=== PATIENT | male | born 1990 | race Caucasian/White ===

== ENCOUNTER 2018-03-27 04:54 | Emergency (ER) | payer MEDICAID, SELFPAY ==
[2018-03-27 04:55] VITALS: BP 141/79; PULSE 103; RESP 16; TEMP 37.6; O2SAT 95; BMI 27.8
[2018-03-27 05:00] VITALS: BP 127/82
[2018-03-27] MEDS: Ibuprofen 600 MG Tablet PO (05:35)
--- NOTE | 2018-03-27 06:40 | ED.VIS.GEN ---
History of Present Illness Chief Complaint: Fever Informant: Patient Onset: Yesterday Context: Sudden Onset Quality: malaise Location: all over Current Severity: Moderate Maximum Severity: Moderate Worsened by: nothing Relieved by: nothing Associated Symptoms: headache, nausea, subjective fever/chills Narrative: Patient states that yesterday, all of a sudden, he felt like he got hit by a truck. No sore throat, runny nose, cough, vomiting, diarrhea, earache, or other focal symptoms. Past Medical History - Allergies and Home Meds Allergies/Adverse Reactions: Allergies No Known Allergies Allergy (Verified 03/27/18 04:57) Primary Care Physician: Rachell Broderick MD [Primary Care Provider] - Past Medical History: None Smoking Status: Never smoker Drugs: None Review of Systems General: Reports: Chills, Fever, Malaise. Denies: Sweats Eyes: Denies: Visual changes - bilaterally, Diplopia ENT: Denies: Bilateral ear pain, Rhinorrhea, Sore throat Cardiovascular: Denies: Chest pain, Palpitations Respiratory: Denies: Dyspnea, Cough, Dyspnea on exertion Gastrointestinal: Reports: Nausea. Denies: Abdominal pain, Vomiting, Diarrhea, Melena, Hematochezia Genitourinary: Denies: Dysuria, Hematuria, Frequency Musculoskeletal: Reports: Myalgias. Denies: Neck pain, Back pain, Extremity Pain Skin: Denies: Rash, Abscess Neurological: Denies: Headache, Weakness, Parasthesia, Numbness Physical Exam Vital Signs/Narrative: Vital Signs Temp Pulse Resp BP Pulse Ox 03/27/18 05:00 127/82 H 03/27/18 04:55 99.6 F H 103 H 16 141/79 H 95 Inital Vital Signs reviewed: Yes General: Well nourished, Well developed, - - well-appearing, nad Head: Normocephalic, Atraumatic Eyes: Perrl, EOMI ENT: Moist mucous membranes, No rhinorrhea, TM's clear, - - POP clear, normal. Negative for: Sinus tenderness Neck: Supple, Nontender, No lymphadenopathy Cardiovascular: Regular rate, Regular rhythm, No murmurs Respiratory: No distress, CTA bilaterally, Chest nontender Abdomen: Soft, Nontender, Nondistended, Normal bowel sounds Back: Nontender, Normal Inspection Extremities: Nontender, No edema Skin: Normal color, No rash Neurological: Alert, Oriented x3, Cranial nerves II-XII grossly intact, Normal Strength, Normal Sensation Psychological: Normal affect Diagnostic/Tx/Re-eval Microbiology 03/27/18 05:35 Mucosa - Nose Influenza Types A,B Direct FA ([facility]) - Final -- NEGATIVE - Medical Decision Making Patient states he took Tylenol Sinus and flu prior to getting here, and still has a significant headache. He was given Motrin and this improved his headache some. He declined antiemetic. I think he is stable for discharge, his influenza is negative he likely has a viral syndrome, there is no objective evidence of any abnormal physical exam finding or infection, consistent with a viral infection. 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 ED Disposition - Plan for ED Patient: Disposition: Home or Assisted Living Chief Complaint: Fever Diagnosis: Viral syndrome Instructions: ED Viral Syndrome Referrals: Rachell Broderick MD [Primary Care Provider] - 1 Week if not improving
--- NOTE | 2018-03-27 06:44 | ED.DCSUM_ITS ---
History of Present Illness Chief Complaint: Fever Informant: Patient Onset: Yesterday Context: Sudden Onset Quality: malaise Location: all over Current Severity: Moderate Maximum Severity: Moderate Worsened by: nothing Relieved by: nothing Associated Symptoms: headache, nausea, subjective fever/chills Narrative: Patient states that yesterday, all of a sudden, he felt like he got hit by a truck. No sore throat, runny nose, cough, vomiting, diarrhea, earache, or ot her focal symptoms. Past Medical History - Allergies and Home Meds Allergies/Adverse Reactions: Allergies No Known Allergies Allergy (Verified 03/27/18 04:57) Primary Care Physician: Rachell Broderick MD [Primary Care Provider] - Past Medical History: None Smoking Status: Never smoker Drugs: None Review of Systems General: Reports: Chills, Fever, Malaise. Denies: Sweats Eyes: Denies: Visual changes - bilaterally, Diplopia ENT: Denies: Bilateral ear pain, Rhinorrhea, Sore throat Cardiovascular: Denies: Chest pain, Palpitations Respiratory: Denies: Dyspnea, Cough, Dyspnea on exertion Gastrointestinal: Reports: Nausea. Denies: Abdominal pain, Vomiting, Diarrhea, Melena, Hematochezia Genitourinary: Denies: Dysuria, Hematuria, Frequency Musculoskeletal: Reports: Myalgias. Denies: Neck pain, Back pain, Extremity Pain Skin: Denies: Rash, Abscess Neurological: Denies: Headache, Weakness, Parasthesia, Numbness Physical Exam Vital Signs/Narrative: Vital Signs Temp Pulse Resp BP Pulse Ox 03/27/18 05:00 127/82 H 03/27/18 04:55 99.6 F H 103 H 16 141/79 H 95 Inital Vital Signs reviewed: Yes General: Well nourished, Well developed, - - well-appearing, nad Head: Normocephalic, Atraumatic Eyes: Perrl, EOMI ENT: Moist mucous membranes, No rhinorrhea, TM's clear, - - POP clear, normal. Negative for: Sinus tenderness Neck: Supple, Nontender, No lymphadenopathy Cardiovascular: Regular rate, Regular rhythm, No murmurs Respiratory: No distress, CTA bilaterally, Chest nontender Abdomen: Soft, Nontender, Nondistended, Normal bowel sounds Back: Nontender, Normal Inspection Extremities: Nontender, No edema Skin: Normal color, No rash Neurological: Alert, Oriented x3, Cranial nerves II-XII grossly intact, Normal Strength, Normal Sensation Psychological: Normal affect Diagnostic/Tx/Re-eval Microbiology 03/27/18 05:35 Mucosa - Nose Influenza Types A,B Direct FA ([facility]) - Final -- NEGATIVE - Medical Decision Making Patient states he took Tylenol Sinus and flu prior to getting here, and still has a significant headache. He was given Motrin and this improved his headache some. He declined antiemetic. I think he is stable for discharge, his influenza is negative he likely has a viral syndrome, there is no objective evidence of any abnormal physical exam finding or infection, consistent with a viral infection. 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 ED Disposition - Plan for ED Patient: Disposition: Home or Assisted Living Chief Complaint: Fever Diagnosis: Viral syndrome Instructions: ED Viral Syndrome Referrals: Rachell Broderick MD [Primary Care Provider] - 1 Week if not improving
[2018-03-27 06:50] VITALS: RESP 16
--- OUTSIDE RECORDS SUMMARY | 2018-05-21 18:15 | XMS RPT_ITS ---
:1990 Author Organization [facility] Care Team Providers Name Role Phone Rachell Broderick Primary Care Unavailable Keila Eugene Attending Unavailable Rachell Broderick Primary Care Unavailable FOREST HAN Attending Unavailable PROBLEMS PROBLEMS No Problem Records FoundPROCEDURES PROCEDURES No Procedure Records FoundRESULTS RESULTS EMERGENCY DEPARTMENT Observed: 03/27/2018 Status: F Source: [place] SUMMARY 6:54 AM [facility] REPOSITORY [facility] Medical Records Department [address] [place] [address] Emergency Department Summary 03/27/18 0640 MR#: [id number] Acct: [id number] Name: JEFFREY GARCIA III Rep #: [id number] : 1990 27 From: Forest Han MD PCP: Rachell Broderick MD Status: DEP ER History of Present Illness Chief Complaint: Fever Informant: Patient Onset: Yesterday Context: Sudden Onset Quality: malaise Location: all over Current Severity: Moderate Maximum Severity: Moderate Worsened by: nothing Relieved by: nothing Associated Symptoms: headache, nausea, subjective fever/chills Narrative: Patient states that yesterday, all of a sudden, he felt like he got hit by a truck. No sore throat, runny nose, cough, vomiting, diarrhea, earache, or other focal symptoms. Past Medical History - Allergies and Home Meds Allergies/Adverse Reactions: Allergies No Known Allergies Allergy (Verified 03/27/18 04:57) Primary Care Physician: Rachell Broderick MD [Primary Care Provider] - Past Medical History: None Smoking Status: Never smoker Drugs: None Review of Systems General: Reports: Chills, Fever, Malaise. Denies: Sweats Eyes: Denies: Visual changes - bilaterally, Diplopia ENT: Denies: Bilateral ear pain, Rhinorrhea, Sore throat Cardiovascular: Denies: Chest pain, Palpitations Respiratory: Denies: Dyspnea, Cough, Dyspnea on exertion Gastrointestinal: Reports: Nausea. Denies: Abdominal pain, Vomiting, Diarrhea, Melena, Hematochezia Genitourinary: Denies: Dysuria, Hematuria, Frequency Musculoskeletal: Reports: Myalgias. Denies: Neck pain, Back pain, Extremity Pain Skin: Denies: Rash, Abscess Neurological: Denies: Headache, Weakness, Parasthesia, Numbness Physical Exam Vital Signs/Narrative: Vital Signs 03/27/18 05:00 127/82 H 03/27/18 04:55 99.6 F H 103 H 16 141/79 H 95 Inital Vital Signs reviewed: Yes General: Well nourished, Well developed, - - well-appearing, nad Head: Normocephalic, Atraumatic Eyes: Perrl, EOMI ENT: Moist mucous membranes, No rhinorrhea, TM's clear, - - POP clear, normal. Negative for: Sinus tenderness Neck: Supple, Nontender, No lymphadenopathy Cardiovascular: Regular rate, Regular rhythm, No murmurs Respiratory: No distress, CTA bilaterally, Chest nontender Abdomen: Soft, Nontender, Nondistended, Normal bowel sounds Back: Nontender, Normal Inspection Extremities: Nontender, No edema Skin: Normal color, No rash Neurological: Alert, Oriented x3, Cranial nerves II-XII grossly intact, Normal Strength, Normal Sensation Psychological: Normal affect Diagnostic/Tx/Re-eval Microbiology 03/27/18 05:35 Mucosa - Nose Influenza Types A,B Direct FA ([facility]) - Final -- NEGATIVE - Medical Decision Making Patient states he took Tylenol Sinus and flu prior to getting here, and still has a significant headache. He was given Motrin and this improved his headache some. He declined antiemetic. I think he is stable for discharge, his influenza is negative he likely has a viral syndrome, there is no objective evidence of any abnormal physical exam finding or infection, consistent with a viral infection. 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 ED Disposition - Plan for ED Patient: Disposition: Home or Assisted Living Chief Complaint: Fever Diagnosis: Viral syndrome Instructions: ED Viral Syndrome Referrals: Rachell Broderick MD [Primary Care Provider] - 1 Week if not improving What to do if you have Problems For any increased pain, shortness of breath, bleeding, nausea or vomiting, chest pain, or any unexpected problems, contact your Primary Care Provider. Call [facility] ([phone]) or report to the closest Emergency Room. Call 911 if necessary. 03/27/18 0654 <Electronically signed by Forest Han MD> Date Forest Han MD Cosigner Signature (If Indicated): Date CC: Rachell Broderick MD Observed: 03/27/2018 Status: F Source: [place] INFLUENZA A+B (RAPID 5:35 AM [facility]) REPOSITORY Order Date: 03/27/18 FLU A/B Rapid Negative test results should be confirmed by culture. Order Rapid Viral Culture for Influenzae A+B ([id number]) if clinically indicated. Influenza Ag, Direct Presumptive NEGATIVE for Influenza A/B Antigen (See Note) Performed By: #### M101.0101 #### [facility] [address] [place], [address] ALLERGIES ALLERGIES DATE TYPE / CODE NAME / CODE REACTION SEVERITY SOURCE 03/27/2018 Drug No Known Unknown [place] Allergy/4160 Allergies/F00 Hospital 30123(SNOMED [id number](RXNOR Repository CT) M) ENCOUNTERS ENCOUNTERS ADMIT/DISCHARGE ACCOUNT ADMITTING ENCOUNTER LOCATION SOURCE NUMBER CLASS 03/27/2018/ [id number] Emergency [address] ing:ED Repository 05/11/2017/ [id number] Emergency [address] ing:ED Repository PAYERS PAYERS ENCOUNTER GUARANTOR PAYER SUBSCRIBER SOURCE 03/27/2018 JEFFREY Monroy Primary JEFFREY GARCIA [id number] Insurance:[place]OOSE[place]ELT RAMONA [facility] [place] Number: Repository [id number]: 330 [id number] [phone] () Date:[id number] [address] [address]VA: 03/27/2018 Secondary NOT GIVENUNK Leonidas Insurance:SELF PAY [facility] Number: Effective Repository Date:2018-03-27 05/11/2017 Jeffrey Garcia Primary Jeffrey Lauren [id number] Insurance:PARAMOUNT IiiDOB: [facility] [id number] Number: Repository [id number]: 330 [id number] [phone] () Date:[id number] [address] [address]LT: 05/11/2017 Secondary NOT GIVENUNK Leonidas Insurance:SELF PAY [facility] Number: Effective Repository Date:2017-05-11
== END 2018-03-27 06:53 | disposition home or self-care (01) ==
PROVIDERS: Emergency Provider Emergency Medicine; Family Provider Internal Medicine; PCP Internal Medicine
DX: B34.9 Viral infection, unspecified (principal); R50.9 Fever, unspecified; R51 Headache; R11.0 Nausea
CPT/HCPCS: 87804; 99283

== ENCOUNTER 2020-10-08 15:05 | Emergency (ER) | payer MEDICAID, SELFPAY ==
[2020-10-08 15:05] VITALS: BP 131/76; PULSE 126; RESP 18; TEMP 38.1; O2SAT 99; BMI 28.7
--- NOTE | 2020-10-08 16:01 | EKG12_ITS ---
Test Reason : Blood Pressure : / mmHG Vent. Rate : 115 BPM Atrial Rate : 115 BPM P-R Int : 144 ms QRS Dur : 070 ms QT Int : 294 ms P-R-T Axes : 049 001 015 degrees QTc Int : 406 ms Sinus tachycardia Otherwise normal ECG Confirmed by STEVEN YEE, RAFAEL ([id number]), editorial project manager CECIL AGUILA ([id number]) on 10/11/2020 9:55:45 AM Referred By: SCARLETT Confirmed By:RAFAEL HARRIS MD
--- NOTE | 2020-10-08 16:05 | EDS_ITS ---
HPI History of Present Illness Chief Complaint: Fever Narrative Narrative: 30-year-old male presenting with fever, body aches, nausea, diarrhea, cough, dyspnea. Patient denies change in taste or smell. He states his symptom onset was about 2 days ago. He denies any known exposure to COVID-19 or any other ill patients. Patient states he initially started having a headache about 7 days ago which was mild and has been getting worse. Patient states he has undiagnosed migraine headaches. He is never had any imaging of his head. His headache is worse over the last couple of days since his new symptoms started. 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 Patient states he is no longer a smoker and quit years ago. He denies any other health issues. [facility] Medical History (Updated 10/08/20 @ 16:49 by Austen Brooke) No pertinent past medical history Home Medications levofloxacin 750 mg PO DAILY #4 tab 10/08/20 [Rx Last Taken Unknown] ondansetron HCl [Zofran] 4 mg PO Q8H PRN #14 tab 10/08/20 [Rx Last Taken Unknown] Allergy/AdvReac Type Severity Reaction Status Date / Time No Known Allergies Allergy Verified 10/08/20 15:08 Social History Smoking Status: Never smoker ROS [facility] ED Constitutional Constitutional ED: Reports chills, fever(s) and sweats Eyes Eyes: Denies blurry vision or change in vision ENT ENT ED: Denies ear pain, rhinorrhea or sore throat Cardiovascular Cardiovascular: Denies chest pain, palpitations or racing heartbeat Respiratory/Chest Respiratory/Chest: Reports cough and dyspnea; Denies sputum Gastrointestinal Gastrointestinal: Reports diarrhea and nausea; Denies abdominal pain, con stipation or vomiting Genitourinary Genitourinary ED: Denies dysuria, hematuria or urinary frequency Musculoskeletal Musculoskeletal: Reports myalgias; Denies arthralgias or neck pain Integumentary Denies abscess, Abrasions or rash Neurologic Neurologic: Reports headache(s); Denies paresthesias or weakness Psychiatric Psychiatric: Denies anxiety, depression, suicidal ideation or suicidal thoughts Endocrine Endocrinology: Denies polydipsia or polyuria EXAM Physical Exam Const Vital Signs: 10/08/20 15:05 10/08/20 16:36 10/08/20 16:50 Temperature 100.6 F H 101.7 F H Temperature Source Temporal Oral Pulse Rate 126 H 122 H Respiratory Rate 18 30 H Respiratory Effort Short of Breath Respiratory Pattern Tachypnea Blood Pressure 131/76 H 127/82 H Blood Pressure Mean 94 97 Pulse Ox 99 97 Oxygen Delivery Method Room Air Room Air 10/08/20 19:00 Temperature 101.7 F H Temperature Source Oral Pulse Rate 99 Respiratory Rate 18 Respiratory Effort Respiratory Pattern Blood Pressure 118/78 Blood Pressure Mean 91 Pulse Ox 99 Oxygen Delivery Method Room Air Positive well nourished General Appearance ED: NAD HEENT Reports moist mucous membranes Negative for trauma Eyes PERRL and EOMs intact bilaterally General Eye ED: Yes other Neck no lymphadenopathy and supple Chest Wall inspection of chest normal Resp normal respiratory effort and clear to auscultation bilaterally Cardio regular rhythm Rate: tachycardic GI normal to inspection, nondistended, normoactive bowel sounds and non-tender Palpation: soft Extremity normal to inspection General Extremety ED: Negative for tenderness Neuro oriented x3 and CN's II-XII intact bilaterally Sensorium / Orientation: alert Psych mental status grossly normal Attitude: No agitated Mood & Affect: Negative for depressed Skin no rashes or lesions noted and no wounds MDM MDM MDM Narrative Medical decision making narrative: Patient presents with fever, tachycardic has been ill for 2 days with diarrhea, nausea. Given patient's vital signs he was pancultured. Patient given Tylenol and 500 cc of IV fluids while awaiting rapid Covid antigen. Patient was given a gram of Tylenol as well as Reglan and Benadryl for his headache. Patient had EKG performed on arrival which is sinus rhythm at 115 bpm without signs of ischemic change. Patient's lab work shows a slight leukocytosis at 12.1. H&H are stable. Kidney function is slightly bumped with a creatinine of 1.42. Electrolytes are unremarkable. Lactic acid is 1.0. CT brain is read by radiologist as negative for acute intracranial pathology. Chest x-ray is interpreted by myself shows a right upper lobe infiltrate and the radiologist does agree. 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 Patient is given another liter of IV fluids. On reevaluation he feels improved. His vital signs are now normal. He was counseled that he technically does meet sepsis criteria but he wishes to be sent home with antibiotics and antiemetics to see if he get better there. Given that the patient has normal vital signs and looks well I feel this is reasonable. He is given return precautions. Patient stable for discharge at this time. Impression: 1. Right upper lobe pneumonia Lab Data Labs: Laboratory Results - last 24 hr 10/08/20 10/08/20 10/08/20 16:26 16:26 16:26 WBC 12.1 H RBC 5.05 Hgb 14.6 Hct 42.8 MCV 84.8 MCH 28.9 MCHC 34.1 RDW Std Deviation 37.1 RDW Coeff of Tracy 12.2 Plt Count 329 MPV 10.7 Immature Gran % (Auto) 0.300 Neut % (Auto) 82.4 H Lymph % (Auto) 10.2 L [place] % (Auto) 6.9 Eos % (Auto) 0.0 Baso % (Auto) 0.2 Absolute Neuts (auto) 10.0 H Absolute Lymphs (auto) 1.23 Nucleated RBC % 0 Sodium 134 L Potassium 4.1 Chloride 100 Carbon Dioxide 25.0 Anion Gap 9 BUN 13 Creatinine 1.42 H Estim Creat Clear Calc 77.83 Est GFR (MDRD) Af Amer 75 Est GFR (MDRD) Non-Af 62 BUN/Creatinine Ratio 9.2 L Glucose 103 Lactic Acid Calcium 9.5 Total Bilirubin 0.90 AST 59 H ALT 97 H Alkaline Phosphatase 57 Troponin I < 0.015 Total Protein 8.0 Albumin 4.2 Globulin 3.8 Albumin/Globulin Ratio 1.1 Procalcitonin 0.26 H 10/08/20 16:26 WBC RBC Hgb Hct MCV MCH MCHC RDW Std Deviation RDW Coeff of Tracy Plt Count MPV Immature Gran % (Auto) Neut % (Auto) Lymph % (Auto) [place] % (Auto) Eos % (Auto) Baso % (Auto) Absolute Neuts (auto) Absolute Lymphs (auto) Nucleated RBC % Sodium Potassium Chloride Carbon Dioxide Anion Gap BUN Creatinine Estim Creat Clear Calc Est GFR (MDRD) Af Amer Est GFR (MDRD) Non-Af BUN/Creatinine Ratio Glucose Lactic Acid 1.1 Calcium Total Bilirubin AST ALT Alkaline Phosphatase Troponin I Total Protein Albumin Globulin Albumin/Globulin Ratio Procalcitonin Radiography Diagnostic Testing: Radiology Impression Brain CT 10/08/20 16:05 IMPRESSION: Normal unenhanced CT scan of the brain. Electronically Signed: Guero Kay MD at 18:29 EDT , Service support , Chest CTA 10/08/20 17:55 IMPRESSION: Normal CTA chest examination, without a demonstrated pulmonary embolism or arterial dissection. Infiltrate consistent with pneumonia in the right upper lobe. Mild basilar atelectasis and/or scarring in both posterior lung bases. Electronically Signed: Guero Kay MD at 18:36 EDT , Service support , Chest X-Ray 10/08/20 17:55 IMPRESSION: Right upper lobe infiltrate. Streaky densities consistent with atelectasis and/or scarring in both lung bases. Electronically Signed: Guero Kay MD at 18:20 EDT , Service support , Discharge Plan Triage Chief Complaint: Fever ED Provider: Don Harrison Dx/Rx/DC Orders Instructions: ED Pneumonia (Adult) Prescriptions: New levofloxacin 750 mg tablet 750 mg PO DAILY Qty: 4 RF: 0 ondansetron HCl [Zofran] 4 mg tablet 4 mg PO Q8H PRN (Reason: nausea) Qty: 14 RF: 0 Primary Care Provider: Rachell Broderick Referrals: Rachell Broderick MD [Primary Care Provider] - Disposition Disposition: Home, self care
--- NOTE | 2020-10-08 16:05 | CT_ITS ---
STUDY: CT BRAIN WITHOUT CONTRAST REASON FOR EXAM: Male, 30 years old. headache RADIATION DOSAGE (If Supplied By Facility): CTDIvol = ( 44.99 ) mGy, DLP = ( 745.49 ) mGycm TECHNIQUE: Transaxial CT imaging of the brain was performed without administration of intravenous contrast material. Individualized dose optimization techniques were used for this CT. COMPARISON: No relevant priors. FINDINGS: Normal soft tissue structures. Normal calvarium. Normal size ventricles and extra-axial spaces for the patient''s age. Normal white matter tracts of the cerebral hemispheres. Normal basal ganglia and thalami. Normal brainstem. Normal cerebellum. There is no intracranial hemorrhage. There are no findings of an acute ischemic infarction. Normal visualized paranasal sinuses. CT/Brain/Head without Contrast IMPRESSION: Normal unenhanced CT scan of the brain. Electronically Signed: Guero Kay MD at 18:29 EDT , Service support ,
--- NOTE | 2020-10-08 16:12 | NURSING ---
NO OLD EKGS
[2020-10-08] MEDS: DiphenhydrAMINE 50 MG/ML Syringe 25 MG IV (16:29)
[2020-10-08] MEDS: Metoclopramide 10 MG/2 ML Vial IV (16:30)
[2020-10-08] MEDS: Acetaminophen 500 MG Tablet 1000 MG PO (16:31)
[2020-10-08 16:36] VITALS: BP 127/82; BP 127/85; PULSE 115; PULSE 122; RESP 29; RESP 30; TEMP 38.7; O2SAT 97
[2020-10-08 17:08] LABS: Absolute Lymphocyte Count 1.23 X10^3/uL (0.83-4.51); Basophil# 0.03 X10^3/uL; Basophil% 0.2 % (0-1); Hematocrit 42.8 % (40-54); Hemoglobin 14.6 g/dL (13.0-16.5); Lymphocyte # 1.23 X10^3/ul (0.83-4.51); Lymphocyte % 10.2 % (19-41); Mean Corp Hgb Conc 34.1 g/dL (32-36); Mean Corpuscular Hgb 28.9 pg (27.0-32.0); Mean Corpuscular Volume 84.8 fL (80-94); Mean Platelet Vol. 10.7 fl (6.2-12.0); Monocyte# 0.84 X10^3/uL; Monocyte% 6.9 % (0-10); NRBC Flagged by Analyzer 0 % (0-5); Neutrophil # 9.96 X10^3/uL (2.7-7.7); Neutrophil % 82.4 % (47-70); Platelet Count 329 K/mm3 (150-450); RBC Distribution Width CV 12.2 % (11.6-14.6); RBC Distribution Width SD 37.1 fl (35.1-43.9); Red Blood Count 5.05 M/mm3 (4.6-6.2); White Blood Count 12.1 K/mm3 (4.4-11.0)
[2020-10-08 17:26] LABS: ALB/GLOB Ratio 1.1 RATIO (0.9-2.4); AST(SGOT) 59 U/L (15-37); Alanine Aminotransfer ALT/SGPT 97 U/L (16-61); Albumin, Serum 4.2 g/dL (3.2-5.0); Alkaline Phosphatase 57 U/L (45-117); Anion Gap 9 (5-15); BUN 13 mg/dL (7-18); BUN/Creat Ratio 9.2 RATIO (10-20); Calcium,Total 9.5 mg/dL (8.5-10.1); Chloride 100 mmol/L (98-107); Creatinine, Serum 1.42 mg/dL (0.70-1.30); EST Glomerular Filtration Rate 62 mL/min (>60); Est Glom Filt Rate - Afr Amer 75 mL/min (>60); Estimated Creatinine Clearance 77.83 ml/min; Globulin 3.8 g/dL (2.2-4.2); Glucose 103 mg/dL (74-106); Potassium 4.1 mmol/L (3.5-5.1); Sodium Level 134 mmol/L (136-145)
[2020-10-08 17:32] LABS: Procalcitonin 0.26 ng/mL (0.00-0.09)
[2020-10-08 17:54] LABS: Lactic Acid 1.1 mmol/L (0.4-1.9)
--- NOTE | 2020-10-08 17:55 | CT_ITS ---
STUDY: CTA CHEST REASON FOR EXAM: Male, 30 years old. dyspnea RADIATION DOSAGE (If Supplied By Facility): CTDIvol = ( 12.62 ) mGy, DLP = ( 471.53 ) mGycm TECHNIQUE: The examination was performed with the intravenous administration of IV 100mL Isovue-370. Post-processing of the angiographic images was performed, with multiplanar reformation and 3D reconstruction. Individualized dose optimization techniques were used for this CT. COMPARISON: None. FINDINGS: Normal enhancement of the main pulmonary artery and right and left pulmonary arteries. Normal enhancement of the bilateral peripheral pulmonary arteries. There is no demonstrated pulmonary embolism. Normal thoracic aorta and visualized great vessels. There is no demonstrated aortic dissection. Normal heart and pericardium. Normal visualized trachea and bronchi. The lungs are well expanded. There is prominent infiltrate seen in the right upper lobe most consistent with pneumonia. Lesser degrees of density in both lung bases suggestive of scarring and/or subsegmental atelectasis. No effusions. Possible right hilar adenopathy. Normal osseous structures. Normal visualized upper abdomen. CT/CTA Chest W/WO Contrast IMPRESSION: Normal CTA chest examination, without a demonstrated pulmonary embolism or arterial dissection. Infiltrate consistent with pneumonia in the right upper lobe. Mild basilar atelectasis and/or scarring in both posterior lung bases. Electronically Signed: Guero Kay MD at 18:36 EDT , Service support ,
--- NOTE | 2020-10-08 17:55 | RAD_ITS ---
STUDY: X-RAY CHEST REASON FOR EXAM: Male, 30 years old. cough TECHNIQUE: Single AP portable view of the chest. COMPARISON: 12/16/2013. FINDINGS: There is infiltrate in the right upper lobe adjacent to the minor fissure. Probable mild atelectasis and/or scarring in both lung bases worse on the left. No gross effusions. Normal size heart. Normal mediastinum and luan. Normal visualized pulmonary arteries. Normal visualized aortic arch and descending thoracic aorta. Normal visualized thoracic spine. Normal visualized ribs, clavicles, and shoulders. There is no demonstrated abnormality of the visualized soft tissue structures of the upper abdomen. RAD/Chest 1 View (Portable) IMPRESSION: Right upper lobe infiltrate. Streaky densities consistent with atelectasis and/or scarring in both lung bases. Electronically Signed: Guero Kay MD at 18:20 EDT , Service support ,
[2020-10-08 19:00] VITALS: BP 118/78; PULSE 99; RESP 18; TEMP 38.7; O2SAT 99
[2020-10-08 19:32] LABS: Bacteria 0 SEEN /hpf (None Seen); Mucous, Urine 0 SEEN /hpf (<or=2+); Red Blood Cells-Urine 0 SEEN /hpf (0-5); White Blood Cells 0 SEEN /hpf (0-5)
[2020-10-08 19:41] LABS: Color, Urine Yellow (Yellow); Glucose, Dipstick Normal (Normal); Ketone-Dipstick 50 mg/dl (Negative); Leukocyte Esterase-Dipstick Negative /ul (Negative); Nitrite-Dipstick Negative (Negative); Occult Blood-Urine Negative /ul (Negative); Protein-Dipstick 15 mg/dl (Negative); Urine Bilirubin Dipstick Negative (Negative); Urine Clarity Sl. Cloudy (Clear); Urine Urobilinogen 1 mg/dl (Normal)
[2020-10-08] MEDS: levoFLOXacin 750 MG Tablet PO (19:50)
[2020-10-08 19:53] VITALS: BP 113/87; PULSE 82; RESP 15; TEMP 37.2; O2SAT 100
[2020-10-08 20:01] LABS: Squamous Epithelial Cells - UA 0-5 SEEN /hpf (0-5)
== END 2020-10-08 19:54 | disposition home or self-care (01) ==
PROVIDERS: Emergency Provider Student in an Organized Health Care Education/Training Program; PCP Internal Medicine
DX: J18.9 Pneumonia, unspecified organism (principal); Z20.822 Contact with and (suspected) exposure to COVID-19; R11.0 Nausea; R19.7 Diarrhea, unspecified; R51.9 Headache, unspecified; Z79.899 Other long term (current) drug therapy; Z87.891 Personal history of nicotine dependence
CPT/HCPCS: 70450; 71045; 71275; 80053; 81001; 83605; 84145; 84484; 85025; 87040; 87426; 87635; 93005; 96361; 96374; 96375; 99285; J7030; J7040; Q9967; U0005; A4216; U0003

== ENCOUNTER → 2021-04-23 13:12 | Outpatient (CLI) | payer MEDICAID, SELFPAY | PROVIDERS: PCP Internal Medicine; Referring Provider Physician Assistant Surgical; Visit Provider Physician Assistant Surgical | DX: Z20.822 Contact with and (suspected) exposure to COVID-19 (principal) | CPT/HCPCS: 87635; U0005; U0003 ==

== ENCOUNTER 2021-04-28 01:34 | Emergency (ER) | payer MEDICAID, SELFPAY ==
[2021-04-28 01:35] VITALS: BP 148/78; PULSE 84; RESP 18; TEMP 36.9; O2SAT 100; BMI 28.6
--- NOTE | 2021-04-28 02:09 | EX.ED.DYSGE1 ---
HPI History of Present Illness Chief Complaint: Ear Problem Detail of Chief Complaint: Left ear pain Informant: patient Onset/Context/Timing Onset: Yesterday Current Severity: Moderate Maximum Severity: Moderate Narrative Narrative: Patient presents secondary to left ear pain. He said he is had recent cold symptoms and had a negative Covid test 4 days ago. He feels that his symptoms are improving. This morning he had left ear pain and pain down into his jaw. He thought he had a bad tooth so was brushing his teeth using mouthwash. Pain seemed to improve during the day but then tonight came back focused over the left ear itself. [facility] Medical History No pertinent past medical history Home Medications amoxicillin-pot clavulanate [Augmentin] 1 tab PO BID #20 tab 04/28/21 [Rx Last Taken Unknown] Allergy/AdvReac Type Severity Reaction Status Date / Time No Known Allergies Allergy Verified 04/28/21 02:12 Social History Smoking Status: Never smoker ROS ROS ED Constitutional Constitutional ED: Denies chills or fever(s) Eyes Eyes: Denies change in vision ENT ENT ED: Reports ear pain left and other Details: Head congestion ; Denies sore throat Cardiovascular Cardiovascular: Denies chest pain Respiratory/Chest Respiratory/Chest: Denies cough or dyspnea Gastrointestinal Gastrointestinal: Denies abdominal pain, nausea or vomiting Musculoskeletal Musculoskeletal: Denies back pain Integumentary Denies rash Neurologic Neurologic: Denies headache(s) or weakness Allergic/Immunologic Allergic/Immunologic ED: Denies urticaria EXAM Physical Exam Const Vital Signs: 04/28/21 01:35 Temperature 98.5 F Temperature Source Temporal Pulse Rate 84 Respiratory Rate 18 Blood Pressure 148/78 H Blood Pressure Mean 101 Pulse Ox 100 Positive well nourished and well developed General Appearance ED: well developed HEENT HEENT Narrative: Right TM clear. Left TM with significant erythema. Eyes PERRL and EOMs intact bilaterally Neck supple Chest Wall inspection of chest normal and palpation of chest normal Resp normal respiratory effort and clear to auscultation bilaterally Cardio regular rate and regular rhythm GI non-tender Palpation: soft Extremity normal to inspection Neuro oriented x3 Psych mental status grossly normal Skin no rashes or lesions noted MDM MDM MDM Narrative Medical decision making narrative: Patient does have evidence of left otitis media. He will be treated with a course of Augmentin, first dose given here. Return instructions provided. Discharge Plan Triage Chief Complaint: Ear Problem ED Provider: Keila Eugene Dx/Rx/DC Orders Clinical Impression: Otitis media Instructions: ED Otitis Media Antibiotic ... Prescriptions: New amoxicillin-pot clavulanate [Augmentin] 875-125 mg tablet 1 tab PO BID Qty: 20 RF: 0 Primary Care Provider: Rachell Broderick Referrals: Rachell Broderick MD [Primary Care Provider] - 1 Week if not improving Disposition Disposition: Home, Self Care Discharge Date/Time: 04/28/21 02:13
[2021-04-28] MEDS: Amox/Clavulanate 875 MG Tablet PO (02:11)
== END 2021-04-28 02:13 | disposition home or self-care (01) ==
PROVIDERS: Emergency Provider Emergency Medicine; PCP Internal Medicine; Visit Provider Emergency Medicine
DX: H66.92 Otitis media, unspecified, left ear (principal)
CPT/HCPCS: 99283

== ENCOUNTER 2021-08-14 19:06 | Emergency (ER) | payer MEDICAID, SELFPAY ==
[2021-08-14 19:07] VITALS: BP 125/80; PULSE 90; RESP 12; TEMP 36.9; O2SAT 100; BMI 28.7
--- NOTE | 2021-08-14 19:26 | EDS_ITS ---
HPI HPI - GI History of Present Illness Chief Complaint: Nausea/Vomiting/Diarrhea Informant: patient, family and EMS Abdominal Pain/Flank Pain Onset: Yesterday (evening) Context: Gradual Onset Timing: Continuous Quality: Cramping Location: - (Periumbilical) Current Severity: Moderate Maximum Severity: Moderate Worsened by: - (Vomiting) Relieved by: Nothing Nausea/Vomiting/Emesis GI Symptom: Positive for Nausea and Vomiting Onset: Today Quality: Positive for Nonbilious Severity: Mild Diarrhea/Melena/Hematochezia GI Symptom: Positive for Diarrhea; Negative for Melena and Hematochezia Onset: Yesterday Stool Quality: Positive for Loose and Watery; Negative for Black, Maroon and BRB per rectum Episodes: 7 Associated Symptoms Associated Symptoms: Negative for Dysuria, Frequency, Hematuria and Urgency Narrative Narrative: Patient feeling malaised, nonbloody diarrhea since last night, and occasional vomiting today. Nonbilious, nonbloody. No fevers or chills. Some periumbilical abdominal discomfort that is a little worse on the left than the right. No back discomfort. No recent travel out of the area. No recent antibiotics. No known sick contacts. No undercooked meats or leftover foods, but he thinks he may have developed food poisoning from a microwave dinner that he ate. He takes no medications and denies using any drugs. [facility] Medical History No pertinent past medical history no medical history Home Medications amoxicillin-pot clavulanate [Augmentin] 1 tab PO BID #20 tab 04/28/21 [Rx Last Taken Unknown] dicyclomine 20 mg PO .q4-6h PRN #20 capsule 08/14/21 [Rx Last Taken Unknown] ondansetron 8 mg PO Q8H PRN PRN #20 tab 08/14/21 [Rx Last Taken Unknown] Allergy/AdvReac Type Severity Reaction Status Date / Time No Known Allergies Allergy Verified 04/28/21 02:12 Surgical History no surgical history no surgical history Social History Smoking Status: Never smoker ROS ROS ED Constitutional Constitutional ED: Reports fatigue and malaise; Denies chills or fever(s) Eyes Eyes: Denies change in vision or diplopia ENT ENT ED: Denies rhinorrhea or sore throat Cardiovascular Cardiovascular: Denies chest pain or palpitations Respiratory/Chest Respiratory/Chest: Denies cough or dyspnea Gastrointestinal Gastrointestinal: Reports abdominal pain, diarrhea, nausea and vomiting; Denies melena or rectal bleeding Genitourinary Genitourinary ED: Denies dysuria or hematuria Musculoskeletal Musculoskeletal: Denies back pain or neck pain Integumentary Denies abscess or rash Neurologic Neurologic: Denies headache(s), paresthesias or weakness Psychiatric Psychiatric: Denies anxiety or suicidal thoughts EXAM Physical Exam Const Vital Signs: 08/14/21 19:07 08/14/21 20:14 Temperature 98.4 F Temperature Source Temporal Pulse Rate 90 99 Respiratory Rate 12 16 Blood Pressure 125/80 H 103/55 L Blood Pressure Mean 95 71 Pulse Ox 100 100 Oxygen Delivery Method Room Air Room Air Positive well nourished and well developed Constitutional Narrative: Appears malaised no distress General Appearance ED: well developed and NAD HEENT Reports moist mucous membranes normocephalic and atraumatic Eyes PERRL and EOMs intact bilaterally Neck full ROM and supple Resp normal respiratory effort and clear to auscultation bilaterally Cardio regular rate, regular rhythm and no murmurs GI non-distended GI Narrative: Mild diffuse nonfocal tenderness Auscultation: normoactive bowel sounds Palpation: soft Back/Spine no CVA tenderness General Back: other FROM Extremity normal to inspection General Extremety ED: Negative for edema, pulses abnormal or tenderness General Extremity: Negative for edema or pulses abnormal Neuro oriented x3, CN's II-XII intact bilaterally, no sensory deficits noted and gait normal Sensorium / Orientation: awake and alert Motor Exam: strength 5/5 throughout Skin no rashes or lesions noted and no wounds MDM MDM MDM Narrative Medical decision making narrative: Patient has a leukocytosis with predominance of neutrophils no bands. He does have mild acute kidney injury/mild dehydration. He was hydrated here with IV fluids, and for his symptoms he was given Toradol, dicyclomine, Zofran. He felt much better on reevaluation was able to tolerate oral fluids. Initially when he was here, he interrupted our exam to run off to the bathroom given rectal urgency, we were unable to collect a specimen. He was not able to go again. If he continues to have this for more than 72 hours or so I recommend coming back to the ER otherwise supportive care advised for what is most likely viral in etiology since he really has no risk factors for bacterial causes, and he has no history of C. difficile. Prescribed Zofran and dicyclomine and he is comfortable with these plans. Lab Data Attestation: I reviewed the patient's lab results. Labs: Laboratory Results - last 24 hr 08/14/21 08/14/21 18:55 18:55 WBC 17.0 H RBC 5.99 Hgb 17.6 H Hct 50.3 MCV 84.0 MCH 29.4 MCHC 35.0 RDW Std Deviation 37.8 RDW Coeff of Tracy 12.5 Plt Count 403 MPV 10.9 Immature Gran % (Auto) 0.400 Neut % (Auto) 92.0 H Lymph % (Auto) 3.8 L [place] % (Auto) 3.6 Eos % (Auto) 0.0 Baso % (Auto) 0.2 Absolute Neuts (auto) 15.6 H Absolute Lymphs (auto) 0.65 L Nucleated RBC % 0 Sodium 139 Potassium 3.8 Chloride 105 Carbon Dioxide 27.0 Anion Gap 7 BUN 20 H Creatinine 1.51 H Estim Creat Clear Calc 73.19 Est GFR (MDRD) Af Amer 69 Est GFR (MDRD) Non-Af 57 L BUN/Creatinine Ratio 13.2 Glucose 124 H Calcium 10.0 Total Bilirubin 0.80 AST 18 ALT 39 Alkaline Phosphatase 51 Total Protein 8.9 H Albumin 5.1 H Globulin 3.8 Albumin/Globulin Ratio 1.3 Discharge Plan Triage Chief Complaint: Nausea/Vomiting/Diarrhea ED Provider: Ramos Francis Dx/Rx/DC Orders Clinical Impression: Gastroenteritis Instructions: ED Food Poison Or Gastroenteritis Prescriptions: New dicyclomine 10 MG capsule 20 mg PO .q4-6h PRN (Reason: abdominal discomfort) Qty: 20 RF: 0 ondansetron [ondansetron] 4 MG tablet 8 mg PO Q8H PRN PRN (Reason: Nausea) Qty: 20 RF: 0 No Action amoxicillin-pot clavulanate [Augmentin] 875-125 mg tablet 1 tab PO BID Qty: 20 RF: 0 Primary Care Provider: Rachell Broderick Referrals: Rachell Broderick MD [Primary Care Provider] - 3-5 Days if not improving Disposition Disposition: Home, Self Care
[2021-08-14] MEDS: 0.9% Normal Saline 1,000 ML 999 ML IV (19:31)
[2021-08-14] MEDS: Ondansetron 4 MG/2 ML Vial IV (19:31)
[2021-08-14] MEDS: Dicyclomine 20 MG/2 ML Vial IM (19:32)
[2021-08-14] MEDS: Ketorolac 30 MG/ML Syringe IV (19:40)
[2021-08-14 19:50] LABS: Absolute Lymphocyte Count 0.65 X10^3/uL (0.83-4.51); Absolute Neutrophil Count 15.6 X10^3/uL (2.0-7.7); Basophil# 0.03 X10^3/uL; Basophil% 0.2 % (0-1); Hematocrit 50.3 % (40-54); Hemoglobin 17.6 g/dL (13.0-16.5); Lymphocyte # 0.65 X10^3/ul (0.83-4.51); Lymphocyte % 3.8 % (19-41); Mean Corpuscular Hgb 29.4 pg (27.0-32.0); Mean Platelet Vol. 10.9 fl (6.2-12.0); Monocyte# 0.61 X10^3/uL; Monocyte% 3.6 % (0-10); NRBC Flagged by Analyzer 0 % (0-5); Neutrophil # 15.59 X10^3/uL (2.7-7.7); Platelet Count 403 K/mm3 (150-450); RBC Distribution Width CV 12.5 % (11.6-14.6); RBC Distribution Width SD 37.8 fl (35.1-43.9); Red Blood Count 5.99 M/mm3 (4.6-6.2)
[2021-08-14 20:14] VITALS: BP 103/55; PULSE 99; RESP 16; O2SAT 100
[2021-08-14 20:23] LABS: ALB/GLOB Ratio 1.3 RATIO (0.9-2.4); AST(SGOT) 18 U/L (15-37); Alanine Aminotransfer ALT/SGPT 39 U/L (16-61); Albumin, Serum 5.1 g/dL (3.2-5.0); Alkaline Phosphatase 51 U/L (45-117); Anion Gap 7 (5-15); BUN 20 mg/dL (7-18); BUN/Creat Ratio 13.2 RATIO (10-20); Chloride 105 mmol/L (98-107); Creatinine, Serum 1.51 mg/dL (0.70-1.30); EST Glomerular Filtration Rate 57 mL/min (>60); Est Glom Filt Rate - Afr Amer 69 mL/min (>60); Estimated Creatinine Clearance 73.19 ml/min; Globulin 3.8 g/dL (2.2-4.2); Glucose 124 mg/dL (74-106); Potassium 3.8 mmol/L (3.5-5.1); Protein, Total 8.9 g/dL (6.4-8.2); Sodium Level 139 mmol/L (136-145)
== END 2021-08-14 21:23 | disposition home or self-care (01) ==
PROVIDERS: Emergency Provider Emergency Medicine; PCP Internal Medicine; Visit Provider Emergency Medicine
DX: K52.9 Noninfective gastroenteritis and colitis, unspecified (principal)
CPT/HCPCS: 80053; 85025; 96361; 96372; 96374; 96375; 99285; J2405

== ENCOUNTER 2022-05-09 23:18 | Emergency (ER) | payer MEDICAID, SELFPAY ==
[2022-05-09 23:19] VITALS: BP 128/78; PULSE 83; RESP 15; TEMP 36.6; O2SAT 99; BMI 28.7
--- NOTE | 2022-05-09 23:36 | CT_ITS ---
INDICATION: left flank pain EXAMINATION: CT ABDOMEN AND PELVIS WITHOUT CONTRAST TECHNIQUE: Helically acquired images were obtained of the abdomen and pelvis without IV contrast. 2-D reconstructions reviewed. A radiation dose optimization technique was used for this scan. IV Contrast dosage and agent: None. Oral contrast: None. COMPARISON: None. FINDINGS: LOWER CHEST: No acute findings within the imaged lung bases. Heart size within normal limits. LIVER: Fatty infiltration of liver. No discrete mass. GALLBLADDER AND BILIARY TREE: No calcified gallstones identified. No gallbladder wall edema demonstrated. No significant biliary ductal dilation. PANCREAS: No discrete mass or peripancreatic edema. SPLEEN: Normal size without discrete mass. ADRENAL GLANDS: Unremarkable. KIDNEYS AND URETERS: Left renal edema and mild hydroureteronephrosis secondary to 3.5 mm ureterovesical junction stone. Unremarkable right kidney. No discrete renal mass. PERITONEUM: No peritoneal free air or significant free fluid. No other fluid collection. RETROPERITONEUM: No retroperitoneal mass or pathologic fluid collection. BOWEL: No evidence of acute appendicitis. No abnormal stomach or bowel distension. No focal inflammatory change. LYMPH NODES: No enlarged mesenteric or retroperitoneal lymph nodes. VESSELS: No acute findings. No abdominal aortic aneurysm. URINARY BLADDER: Incompletely distended. REPRODUCTIVE ORGANS: No pelvic masses. ABDOMINAL WALL: No acute findings or significant hernia defect. BONES: Intact with no suspicious osseous lesion. CT/Abdomen/Pelvis without Cont IMPRESSION: 1. Mild left obstructive uropathy secondary to 3.5 mm left UVJ stone. 2. Mild hepatic steatosis. Electronically Signed: Clifford Pollard MD at 0:31 EST ,
[2022-05-09] MEDS: Ketorolac 30 MG/ML Syringe IV (23:47)
[2022-05-09] MEDS: 0.9% Normal Saline 1,000 ML 999 ML IV (23:47)
[2022-05-09 23:53] LABS: Squamous Epithelial Cells - UA 0 SEEN /hpf (0-5); White Blood Cells 0 SEEN /hpf (0-5)
[2022-05-09 23:55] LABS: Color, Urine Yellow (Yellow); Glucose, Dipstick Normal (Normal); Ketone-Dipstick Negative (Negative); Leukocyte Esterase-Dipstick Negative /ul (Negative); Nitrite-Dipstick Negative (Negative); Occult Blood-Urine 250 /ul (Negative); Protein-Dipstick 30 mg/dl (Negative); Urine Clarity Sl. Cloudy (Clear); Urine Urobilinogen 1 mg/dl (Normal)
[2022-05-09 23:56] LABS: Urine Bilirubin Dipstick 1 mg/dL (Negative)
[2022-05-09 23:59] LABS: Bacteria RARE /hpf (None Seen); Red Blood Cells-Urine 10-25 SEEN /hpf (0-5)
[2022-05-10 00:08] LABS: Absolute Neutrophil Count 6.1 X10^3/uL (2.0-7.7); Anion Gap 8 (5-15); BUN 12 mg/dL (7-18); BUN/Creat Ratio 8.9 RATIO (10-20); Basophil# 0.04 X10^3/uL; Basophil% 0.4 % (0-1); Calcium,Total 8.9 mg/dL (8.5-10.1); Chloride 105 mmol/L (98-107); Creatinine, Serum 1.35 mg/dL (0.70-1.30); EST Glomerular Filtration Rate 65 mL/min (>60); Eosinophil# 0.08 X10^3/uL; Eosinophils% 0.7 % (0-5); Est Glom Filt Rate - Afr Amer 78 mL/min (>60); Estimated Creatinine Clearance 81.11 ml/min; Glucose 136 mg/dL (74-106); Hematocrit 42.2 % (40-54); Hemoglobin 15.1 g/dL (13.0-16.5); Lymphocyte % 37.5 % (19-41); Mean Corp Hgb Conc 35.8 g/dL (32-36); Mean Corpuscular Hgb 29.6 pg (27.0-32.0); Mean Corpuscular Volume 82.7 fL (80-94); Mean Platelet Vol. 10.3 fl (6.2-12.0); Monocyte# 0.78 X10^3/uL; NRBC Flagged by Analyzer 0 % (0-5); Neutrophil # 6.08 X10^3/uL (2.7-7.7); Neutrophil % 54.3 % (47-70); Platelet Count 369 K/mm3 (150-450); Potassium 3.2 mmol/L (3.5-5.1); RBC Distribution Width CV 12.4 % (11.6-14.6); RBC Distribution Width SD 37.3 fl (35.1-43.9); Sodium Level 139 mmol/L (136-145); White Blood Count 11.2 K/mm3 (4.4-11.0)
--- NOTE | 2022-05-10 00:52 | EDS_ITS ---
HPI History of Present Illness Chief Complaint: Male Pain/Injury Narrative Narrative: Patient is a 31-year-old male who reports no significant past medical history. 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 He denies any excessive activity or trauma. He states that he had finished work and was sitting around resting when he developed sudden onset left-sided abdominal/flank pain. He states the pain radiates towards his groin. He reports the pain is making him nauseous but he denies any vomiting. Patient denies any dysuria or hematuria. He denies any loss of bowel or bladder control or IV drug use. He states he tried [id number] medication with minimal symptom improvement and secondary to this comes to the hospital for evaluation [facility] Medical History No pertinent past medical history Home Medications amoxicillin 875 mg-potassium clavulanate 125 mg tablet (Augmentin) 1 tab PO BID #20 tabs 04/28/21 [Rx Last Taken Unknown] dicyclomine 10 mg capsule 20 mg PO .q4-6h PRN abdominal discomfort #20 CAPSULES 08/14/21 [Rx Last Taken Unknown] ondansetron 4 mg disintegrating tablet 8 mg PO Q8H PRN PRN Nausea #20 tabs 08/14/21 [Rx Last Taken Unknown] ketorolac 10 mg tablet 10 mg PO Q6H PRN pain 5 days #20 tabs 05/10/22 [Rx Last Taken Unknown] oxycodone-acetaminophen 5 mg-325 mg tablet (Percocet) 1 tab PO Q6H PRN pain 3 days #12 tabs 05/10/22 [Rx Last Taken Unknown] tamsulosin 0.4 mg capsule (Flomax) 0.4 mg PO DAILY 14 days #14 caps 05/10/22 [Rx Last Taken Unknown] Allergy/AdvReac Type Severity Reaction Status Date / Time No Known Allergies Allergy Verified 05/09/22 23:22 Social History Smoking Status: Never smoker ROS ROS ED Constitutional Constitutional ED: Denies chills or fever(s) ENT ENT ED: Denies sore throat Cardiovascular Cardiovascular: Denies chest pain Respiratory/Chest Respiratory/Chest: Denies cough or dyspnea Gastrointestinal Gastrointestinal: Reports abdominal pain and nausea; Denies diarrhea or vomiting Genitourinary Genitourinary ED: Denies dysuria or hematuria Musculoskeletal Musculoskeletal: Reports back pain; Denies myalgias Integumentary Denies rash Neurologic Neurologic: Denies headache(s) Hematologic/Lymphatic Hematologic/Lymphatic: Denies easy bleeding or easy bruising EXAM Physical Exam Const Vital Signs: 05/09/22 23:19 Temperature 97.9 F Temperature Source Temporal Pulse Rate 83 Respiratory Rate 15 Blood Pressure 128/78 H Blood Pressure Mean 94 Pulse Ox 99 Oxygen Delivery Method Room Air Positive well nourished and well developed General Appearance ED: well developed HEENT Reports dry mucous membranes Mouth ED: Yes dry mucous membranes Mouth: dry mucous membranes Eyes PERRL and EOMs intact bilaterally Neck supple Resp normal respiratory effort and clear to auscultation bilaterally Cardio regular rate and regular rhythm Cardio Narrative: Radial pulses are plus 2 out of 4 bilaterally are equal and symmetric GI non-distended GI Narrative: No voluntary guarding or rigidity. No pulsatile mass or fluid wave. There is pain on palpation in the left mid abdomen. Auscultation: normoactive bowel sounds Palpation: soft Back/Spine Back/Spine Narrative: Positive left CVA pain present Extremity normal to inspection Neuro oriented x3 and CN's II-XII intact bilaterally Sensorium / Orientation: alert Psych mental status grossly normal Skin no rashes or lesions noted Skin Narrative: No overlying soft tissue changes to suggest trauma or infection MDM MDM MDM Narrative Medical decision making narrative: Patient presented to the ER with stable vitals and history and exam most consistent with kidney stone. Secondary to his basic labs and a noncontrast CT were obtained. Urine show blood consistent with stone but no signs of infection and labs showed no signs of urosepsis or acute kidney injury. CT scan confirmed a stone that is 3.5 mm in size near the left UVJ which is consistent with his exam. After IV hydration and Toradol patient reports his pain is improved to a value of a 4. At this time as he does not have urosepsis or acute kidney injury and has had improvement of pain there is no need for emergent urology consultation and patient is otherwise safe for discharge. Lab Data Attestation: I reviewed the patient's lab results. Labs: Laboratory Results - last 24 hr 05/09/22 05/09/2205/09/23 23:35 23:35 23:50 WBC 11.2 H RBC 5.10 Hgb 15.1 Hct 42.2 MCV 82.7 MCH 29.6 MCHC 35.8 RDW Std Deviation 37.3 RDW Coeff of [place] 12.4 Plt Count 369 MPV 10.3 Immature Gran % (Auto) 0.100 Neut % (Auto) 54.3 Lymph % (Auto) 37.5 [place] % (Auto) 7.0 Eos % (Auto) 0.7 Baso % (Auto) 0.4 Absolute Neuts (auto) 6.1 Absolute Lymphs (auto) 4.20 Nucleated RBC % 0 Sodium 139 Potassium 3.2 L Chloride 105 Carbon Dioxide 26.0 Anion Gap 8 BUN 12 Creatinine 1.35 H Estim Creat Clear Calc 81.11 Est GFR (MDRD) Af Amer 78 Est GFR (MDRD) Non-Af 65 BUN/Creatinine Ratio 8.9 L Glucose 136 H Calcium 8.9 Urine Color Yellow Urine Clarity Sl. Cloudy Urine pH 5.0 Ur Specific [place] 1.030 Urine Protein 30 H Urine Glucose (UA) Normal Urine Ketones Negative Urine Occult Blood 250 H Urine Nitrite Negative Urine Bilirubin 1 H Urine Urobilinogen 1 H Ur Leukocyte Esterase Negative Urine RBC 10-25 SEEN Urine WBC 0 SEEN Ur Squamous Epith Cells 0 SEEN Urine Bacteria RARE Urine Mucus Not Reportable Radiography Diagnostic Testing: Clinical Impression(s) from Imaging Studies Abdomen/Pelvis CT 05/09/22 23:36 IMPRESSION: 1. Mild left obstructive uropathy secondary to 3.5 mm left UVJ stone. 2. Mild hepatic steatosis. Electronically Signed: Clifford Pollard MD at 0:31 EST , Discharge Plan Triage Chief Complaint: Male Pain/Injury ED Provider: Jamison Apodaca Dx/Rx/DC Orders Clinical Impression: Kidney stone, Renal colic Instructions: ED Kidney Stone w/ Colic Prescriptions: New oxycodone-acetaminophen [Percocet] 5-325 mg tablet 1 tab PO Q6H PRN (Reason: pain) 3 Days Qty: 12 0RF tamsulosin [Flomax] 0.4 mg capsule 0.4 mg PO DAILY 14 Days Qty: 14 0RF ketorolac 10 mg tablet 10 mg PO Q6H PRN (Reason: pain) 5 Days Qty: 20 0RF No Action amoxicillin-pot clavulanate [Augmentin] 875-125 mg tablet 1 tab PO BID Qty: 20 0RF dicyclomine 10 MG capsule 20 mg PO .q4-6h PRN (Reason: abdominal discomfort) Qty: 20 0RF ondansetron [ondansetron] 4 MG tablet 8 mg PO Q8H PRN PRN (Reason: Nausea) Qty: 20 0RF Primary Care Provider: Rachell Broderick Referrals: Rachell Broderick MD [Primary Care Provider] - Charles Hawkins MD [Med Staff - Active Staff] - Activity Restrictions/Additional Instructions: Please stay active and keep yourself well-hydrated. Take the Percocet and Toradol together as they work synergistically to help reduce your pain more and for a longer duration. If you develop a fever over 100.4 or have intractable pain please return to the ER for repeat evaluation Disposition Disposition: Home, Self Care Discharge Date/Time: 05/10/22 01:04
[2022-05-10] MEDS: oxyCODONE 5 MG Tablet 10 MG PO (01:00)
== END 2022-05-10 01:04 | disposition home or self-care (01) ==
PROVIDERS: Emergency Provider Emergency Medicine; PCP Internal Medicine; Visit Provider Emergency Medicine
DX: N20.2 Calculus of kidney with calculus of ureter (principal)
CPT/HCPCS: 74176; 80048; 81001; 85025; 96361; 96374; 99285; J7030; A4216